=== PATIENT | male | born 1985 | race Caucasian/White ===

== ENCOUNTER → 2018-10-03 | Outpatient (CLI) | payer OTHER, SELFPAY ==
[2018-10-03 14:27] LABS: Hepatitis C Antibody Non-Reactive (Nonreactive)
[2018-10-07 19:33] LABS: Endomysial Antibody IgA Negative (Negative)
[2018-10-08 03:06] LABS: Clam <0.10 kU/L (Class 0); Codfish <0.10 kU/L (Class 0); Corn <0.10 kU/L (Class 0); Egg, White <0.10 kU/L (Class 0); Milk (Cow) <0.10 kU/L (Class 0); Peanut <0.10 kU/L (Class 0); SCALLOP <0.10 kU/L (Class 0); SESAME SEED 0.11 kU/L (Class 0/I); Shrimp 0.11 kU/L (Class 0/I); Soybean <0.10 kU/L (Class 0); Tomato <0.10 kU/L (Class 0); Walnut, (Food) <0.10 kU/L (Class 0); Wheat <0.10 kU/L (Class 0)
[2018-10-08 08:10] LABS: Pork <0.10 kU/L (Class 0)
[2018-10-08 09:40] LABS: C1 EST Inhibitor, Functional 80 (.); C1 Esterase Inhibitor, Quant 28 mg/dL (21-39); Deamidated Gliadin IgA 3 units (0-19); Deamidated Gliadin IgG 4 units (0-19)
== END | disposition home or self-care (01) ==
LOC: LAB 11:25
PROVIDERS: Referring Provider Otolaryngology; Visit Provider Otolaryngology
DX: T78.40XA Allergy, unspecified, initial encounter (principal); J39.2 Other diseases of pharynx; R60.0 Localized edema
CPT/HCPCS: 36415; 83516; 83520; 86003; 86160; 86161; 86255; 86803